=== PATIENT | female | born 1970 | race Caucasian/White ===

== ENCOUNTER → 2018-02-27 | Outpatient (CLI) | payer BC ==
--- NOTE | 2018-02-28 14:45 | MM ---
Reason for exam: screening (asymptomatic). Last mammogram was performed 2 years and 3 months ago. History: Patient is postmenopausal. Physical Findings: A clinical breast exam by your physician is recommended on an annual basis and results should be correlated with mammographic findings. MG 3D Screening Mammo W/Cad Bilateral CC and MLO view(s) were taken. Prior study comparison: November 22, 2015, bilateral MG screening mammo w CAD. May 02, 2012, mammogram, performed at [facility]. The breast tissue is heterogeneously dense. This may lower the sensitivity of mammography. No significant changes when compared with prior studies. ASSESSMENT: Benign, BI-RAD 2 RECOMMENDATION: Routine screening mammogram of both breasts in 1 year.
== END | disposition home or self-care (01) ==
LOC: RADMAMWWP 12:56
PROVIDERS: ATTEND Family Medicine
DX: Z12.31 Encounter for screening mammogram for malignant neoplasm of breast (principal)
CPT/HCPCS: 77063; 77067

== ENCOUNTER 2020-02-01 08:01 | Emergency (ER) | payer BC ==
[2020-02-01 08:09] VITALS: RESP 18
[2020-02-01] MEDS ORDERED: DIPH,PERTUS(ACELL)TETVAC-LF 0.5 ML VIAL IM ONE (08:14)
[2020-02-01] MEDS ORDERED: LIDOCAINE 1% INJ 10MG/ML (20 ML MDV) SQ ONE (08:14)
--- NOTE | 2020-02-01 08:52 | ED ---
Wound/Laceration HPI - General Chief Complaint: Wound/Laceration Stated Complaint: fall/hand lac Time Seen by Provider: 02/01/20 08:10 Source: patient, family, RN notes reviewed Mode of arrival: wheelchair Limitations: no limitations - History of Present Illness Initial Comments: This a 49-year-old female presents emergency Department chief complaint of right wrist laceration. Patient states that she was walking her dog, tripped and edge causing her fall and coffee cup breaking. Patient states he coughed up broke causing a laceration to her wrist. She denies any paresthesias. She has full range of motion of her digits. She is concerned that there is a piece sticking out of her arm. She states bleeding is controlled with pressure at this time. - Related Data Previous Rx's Medication Instructions Recorded Cephalexin [Keflex] 500 mg PO Q6HR #28 cap 02/01/20 Allergies Allergy/AdvReac Type Severity Reaction Status Date / Time codeine Allergy Unknown Verified 02/01/20 08:13 Review of Systems ROS Statement: Those systems with pertinent positive or pertinent negative responses have been documented in the HPI. ROS Other: All systems not noted in ROS Statement are negative. Past Medical History Past Medical History: No Reported History Additional Past Surgical History / Comment(s): D&C Smoking Status: Never smoker Past Alcohol Use History: None Reported Past Drug Use History: None Reported General Exam Limitations: no limitations General appearance: alert, in no apparent distress Head exam: Present: atraumatic, normocephalic, normal inspection Neck exam: Present: normal inspection, full ROM. Absent: tenderness, meningismus, lymphadenopathy Respiratory exam: Present: normal lung sounds bilaterally. Absent: respiratory distress, wheezes, rales, rhonchi, stridor Cardiovascular Exam: Present: normal rhythm, tachycardia, normal heart sounds. Absent: systolic murmur, diastolic murmur, rubs, gallop, clicks Extremities exam: Present: other (Right wrist there is a 4 cm laceration on the flexor aspect with a large tendon exposed with laceration patient has full range of motion of digits, pulses are equal bilaterally with equal have a refill) Course Vital Signs 02/01/20 08:02 Pulse Rate 116 H Respiratory 18 Rate Blood Pressure 143/83 O2 Sat by Pulse 100 Oximetry Procedures - Laceration Laceration #1 Consent Obtained: verbal consent Indication: laceration Site: upper extremity (Right wrist volar aspect) Size (cm): 4 Description: irregular Depth: involves tendon Anesthetic Used: lidocaine 1%, without epi Anesthesia Technique: local infiltration Amount (mls): 8 Pre-repair: wound explored, irrigated extensively Type of Sutures: nylon Size of Sutures: 4-0 Number of Sutures: 8 Technique: simple, interrupted Patient Tolerated Procedure: well, no complications - Orthopedic Splinting/Casting Injury #1 Side: right Upper Extremity Injury Location: short arm, wrist Upper Extremity Immobilizer: volar splint, synthetic pre-padded splint Medical Decision Making - Medical Decision Making 1-year-old female presented emergency department for fall laceration. Patient does have a large tendon laceration to the flexor aspect. I did discuss the case with Meghana with orthopedics associate who discussed the case with Dr. Paul recommends me to close the wound, splint and will follow-up in office with Dr. Kim Disposition Clinical Impression: Laceration of right wrist with tendon involvement Disposition: HOME SELF-CARE Condition: Stable Instructions (If sedation given, give patient instructions): Laceration (ED), Tendon Laceration (ED) Additional Instructions: Please return to the Emergency Department if symptoms worsen or any other concerns. Prescriptions: Cephalexin [Keflex] 500 mg PO Q6HR #28 cap Is patient prescribed a controlled substance at d/c from ED?: No Referrals: Quentin Galeas DO [Primary Care Provider] - 1-2 days Nitin Kim DO [Medical Doctor] - 1-2 days Boogie Paul DO [Doctor of Osteopathic Medicine] - 1-2 days Time of Disposition: 09:41
--- NOTE | 2020-02-01 08:53 | XR ---
EXAMINATION TYPE: XR wrist complete RT DATE OF EXAM: 02/01/2020 CLINICAL HISTORY: Laceration to anterior wrist. Fall. Concern for foreign body. TECHNIQUE: Frontal, lateral and oblique images of the right wrist are obtained. COMPARISON: None FINDINGS: There is no acute fracture/dislocation evident in the right wrist. The joint spaces in th e right wrist appear within normal limits. There is soft tissue irregularity and laceration of the an terior wrist. There is a poorly defined 2 mm density at the radial inferior aspect of the laceration anteriorly projecting just near the skin surface on lateral view. 1 mm punctate radiopaque density of the ulnar forearm projects at the skin surface and is not felt to represent foreign body. IMPRESSION: 1. No acute fracture or dislocation in the right wrist. 2. Anterior wrist soft tissue laceration. 3. Ill-defined 2 mm density at the radial inferior aspect of the laceration projects just near the sk in surface on lateral view, and is more likely related to overlying bandaging material. Correlate for possible foreign body.
[2020-02-01 09:53] VITALS: BP 120/57; PULSE 76; TEMP 98
== END 2020-02-01 09:53 | disposition home or self-care (01) ==
LOC: EC 08:01
DX: S61.511A Laceration without foreign body of right wrist, initial encounter (principal); Z23 Encounter for immunization; Z88.5 Allergy status to narcotic agent; W01.198A Fall on same level from slipping, tripping and stumbling with subsequent striking against other object, initial encounter; Y93.K1 Activity, walking an animal
CPT/HCPCS: 12002; 90471; 90715; 99283

== ENCOUNTER → 2020-06-24 | Outpatient (CLI) | payer BC ==
--- NOTE | 2020-06-27 09:25 | MM ---
Reason for exam: screening (asymptomatic). Last mammogram was performed 2 years and 4 months ago. History: Patient is postmenopausal. Physical Findings: A clinical breast exam by your physician is recommended on an annual basis and results should be correlated with mammographic findings. MG 3D Screening Mammo W/Cad Bilateral CC and MLO view(s) were taken. Prior study comparison: February 27, 2018, bilateral MG 3d screening mammo w/cad. November 22, 2015, bilateral MG screening mammo w CAD. The breast tissue is heterogeneously dense. This may lower the sensitivity of mammography. There is no discrete abnormality. No significant changes when compared with prior studies. ASSESSMENT: Negative, BI-RAD 1 RECOMMENDATION: Routine screening mammogram of both breasts in 1 year.
== END | disposition home or self-care (01) ==
LOC: RADMAMWWP 10:00
PROVIDERS: ATTEND Family Medicine
DX: Z12.31 Encounter for screening mammogram for malignant neoplasm of breast (principal)
CPT/HCPCS: 77063; 77067

== ENCOUNTER → 2020-11-10 | Outpatient (CLI) | payer BC ==
--- NOTE | 2020-11-10 21:29 | CONS ---
CONSULTATION 50-year-old lady has been evaluated in [facility] for possible obstructive sleep apnea-hypopnea syndrome. HISTORY OF PRESENT ILLNESS/SLEEP WAKE EVALUATION: SLEEP SCHEDULE: Patient's usual sleep schedule from 10 or 11 p.m. until 6:30 or 7 a.m. on weekdays and until 7 or 8 a.m. on weekends. FALLING ASLEEP: No problems with falling asleep, although has TV in bedroom. DURING SLEEP: She sleeps on the side position. According to her , she has had loud snoring and she wakes up from sleep up to 5 times with up to 2 episodes of nocturia, episodes of gasping for air during the sleep, grinding teeth. According to , also episodes of stopped breathing during sleep. DURING THE DAY/SLEEP WAKE EVALUATION: In the morning, patient feels some pressure in throat and headaches. She wakes up tired, has difficulties to pay attention, falling asleep during the day, has problems with memory, concentration, depression and anxiety. [place] Sleepiness Scale significantly increased to 15. She may take naps around 1 or 2 pm. Feels restored after naps. No vivid dreams during naps. No history of hypnagogic hallucinations, sleep paralysis or cataplexy. PAST MEDICAL HISTORY: Positive for headaches, anxiety and mild depression. PAST SURGICAL HISTORY: D&C. SOCIAL HISTORY: Negative for smoking or using alcohol. MEDICATION: Celexa 30 mg once a day. REVIEW OF SYSTEMS: Menopause, snoring, awakenings from sleep, sleepiness during the day. No fevers. No double vision. No recent chest pain. No shortness of breath. No abdominal pain. No bleeding episodes. No blood in the urine. No seizure episodes. No blood in the stool. PHYSICAL EXAMINATION: GENERAL: lady without distress. BP 121/77, HR 77, RR 14, height 5 feet 4-3/4 inches weight 143.6 pounds, BMI 24.0, temperature 97.8, oxygen saturation at room air 98%. Oropharynx position of soft palate at the level of Mallampati 2-3. Big uvula. Neck is 13 inches in circumference. Neck: Supple, no JVD. Thyroid is not palpable. LUNGS: Clear to percussion and to auscultation. Good air exchange. No wheezing or rhonchi. HEART: S1, S2 regular. No murmurs, gallops, or rubs. ABDOMEN: Soft and nontender. Bowel sounds are present. No organomegaly appreciated. EXTREMITIES: No clubbing or cyanosis. BICYCLE ASSEMBLER: Awake, alert, and oriented X3. Cranial nerves 2 to 7 intact. There is no fasciculation or atrophy. noted. No focal deficits observed. IMPRESSION: 1. Loud snoring, witnessed episodes of stopped breathing during sleep, multiple awakenings from sleep, including nocturia, obstructive sleep apnea-hypopnea syndrome. 2. Sleepiness during the day. Bom[place] Sleepiness Scale increased to 15. 3. Menopause. 4. History of anxiety. 5. History of mild depression. 6. Status post dilatation and curettage. PLAN: 1. Home sleep apnea test for evaluation of patient breathing during sleep. 2. If home sleep apnea test to be negative, polysomnography with followup multiple sleep latency test for objective evaluation of patient's symptoms of excessive daytime sleepiness. 3. Sleep hygiene with regular time in bed for 7-1/2 to 8 hours. 4. No driving if feeling sleepiness. Thank you very much for referring this patient for consultation. Sincerely, Tre Rodrigues MD, PhD, FAASM Diplomat of [employer] [facility] [place] MMODL / IJN: [id number] /
== END ==
LOC: SLEEP 15:23
PROVIDERS: ATTEND Internal Medicine
DX: G47.33 Obstructive sleep apnea (adult) (pediatric) (principal); R35.1 Nocturia; Z78.0 Asymptomatic menopausal state; F41.9 Anxiety disorder, unspecified; F32.9 Major depressive disorder, single episode, unspecified; Z87.59 Personal history of other complications of pregnancy, childbirth and the puerperium; Z88.5 Allergy status to narcotic agent
CPT/HCPCS: 99211

== ENCOUNTER → 2022-06-15 | Outpatient (CLI) | payer BC ==
--- NOTE | 2022-06-18 08:01 | MM ---
Reason for Exam: Screening (asymptomatic). Last mammogram was performed 2 year(s) and 0 month(s) ago. Patient History: Menarche at age 11. First Full-Term at age 27. Postmenopausal. Risk Values: Mary 5 year model risk: 1.2%. NCI Lifetime model risk: 9.4%. Prior Study Comparison: 11/22/2015 Bilateral Screening Mammogram, [facility]. 02/27/2018 Bilateral Screening Mammogram, [facility]. 06/24/2020 Bilateral Screening Mammogram, [facility]. Tissue Density: The breast tissue is heterogeneously dense. This may lower the sensitivity of mammography. Findings: Analyzed By CAD. There is no suspicious group of microcalcifications or new suspicious mass in either breast. Chronic nodularity within the left breast. Overall Assessment: Benign, BI-RAD 2 Management: Screening Mammogram of both breasts in 1 year. A clinical breast exam by your physician is recommended on an annual basis and results should be correlated with mammographic findings. Electronically signed and approved by: Ty Moreno D.O.
== END | disposition home or self-care (01) ==
LOC: RADMAMWWP 07:13
PROVIDERS: ATTEND Family Medicine
DX: Z12.31 Encounter for screening mammogram for malignant neoplasm of breast (principal); Z78.0 Asymptomatic menopausal state
CPT/HCPCS: 77063; 77067

== ENCOUNTER → 2024-08-06 | Outpatient (CLI) | payer BC ==
--- NOTE | 2024-08-07 08:00 | MM ---
Reason for Exam: Screening (asymptomatic). Last mammogram was performed 2 year(s) and 2 month(s) ago. Patient History: Menarche at age 11. First Full-Term at age 27. Postmenopausal. Risk Values: Mary 5 year model risk: 1.3%. NCI Lifetime model risk: 9.1%. Prior Study Comparison: 02/27/2018 Bilateral Screening Mammogram, [facility]. 06/24/2020 Bilateral Screening Mammogram, [facility]. 06/15/2022 Bilateral MG 3D screening mammo w/cad, [facility]. Tissue Density: The breasts are heterogeneously dense, which may obscure small masses. Findings: Analyzed By CAD. Areas of asymmetric density are unchanged. There is no suspicious group of microcalcifications or new suspicious mass in either breast. Overall Assessment: Negative, BI-RAD 1 Management: Screening Mammogram of both breasts in 1 year. Patient should continue monthly self-breast exams. A clinical breast exam by your physician is recommended on an annual basis. This exam should not preclude additional follow-up of suspicious palpable abnormalities. Note on Mary scores and lifetime risk: 1. A Mary score greater than 3% is considered moderate risk. If this is the case, consider specialist referral to assess eligibility for a risk reducing agent. 2. If overall lifetime risk for the development of breast cancer is 20% or higher, the patient may qualify for future screening with alternating mammogram and breast MRI. [facility], , 08/07/2024 7:56 AM. Electronically signed and approved by: Elvia Nevarez M.D. Radiologist
== END | disposition home or self-care (01) ==
LOC: RADMAMWWP 15:31
PROVIDERS: ATTEND Family Medicine
DX: Z12.31 Encounter for screening mammogram for malignant neoplasm of breast (principal); R92.333 Mammographic heterogeneous density, bilateral breasts; Z78.0 Asymptomatic menopausal state
CPT/HCPCS: 77063; 77067